=== PATIENT | female | born 1945 | race Caucasian/White ===

== ENCOUNTER 2025-05-05 16:48 | Emergency (ER) | payer MEDICARE, BC, SELFPAY ==
[2025-05-05 16:51] VITALS: BP 148/82; PULSE 75; RESP 20; TEMP 36.9; O2SAT 94
--- NOTE | 2025-05-05 17:00 | DI.RAD_ITS ---
Exam(s) XR SHOULDER LT COMPLETE 2+V EXAM: XR SHOULDER LT COMPLETE 2+V CLINICAL HISTORY: fall; pain to L shoulder. TECHNIQUE: 2D digital imaging was performed. COMPARISON: No exams were available for comparison FINDINGS: Four views There is acute comminuted and impacted fracture of the humeral head and. Greater tuberosity is also fractured. The subacromial space is not diminished. There is no dislocation of the glenohumeral and AC joints. Ipsilateral clavicle is intact. No significant osseous lesions evident. IMPRESSION: Mildly impacted and comminuted fracture of humeral head and neck. The greater tuberosity is also fractured. DATA REPOSITORY: RADIATION DOSE DELIVERED:
--- NOTE | 2025-05-05 17:22 | W.ED.GENAD ---
Discharge Plan Disposition Patient Disposition: Home Condition: Stable Discharge Details Clinical Impression: Fracture of left shoulder Primary Care Provider: Unknown,Unknown ED Provider: Lizandro Bagley Home Meds and New Rx's Prescriptions: Continued metoprolol succinate 25 mg capsule,lindseyinkle,ER 24hr 12.5 mg PO DAILY levothyroxine [Euthyrox] 125 mcg tablet 125 mcg PO DAILY estradiol [Yuvafem] 10 mcg tablet 10 mcg vaginal .Weekly alendronate 10 mg tablet 10 mg PO DAILY Discharge Instructions Instructions: Upper Arm Fracture ED Additional Instructions: You were seen in the emergency department for your fall with a left proximal humerus fracture, this may or may not need surgery but orthopedics recommended just a sling for now. You will need to follow-up with an orthopedic practice upon return to [place]. Remain in the sling, sleep in a recliner chair, rest and ice the area, ice to complete numbness and then not rewarm. For the first couple days you can take 2 naproxen twice per day but then go down to 1 naproxen twice per day. You can take 1000 mg of acetaminophen/Tylenol 3 times per day. We have provided you with 1 dose of oxycodone for breakthrough pain tonight as well as Zofran to help with nausea of opiates Discharge Data Discharge Date/Time-TO BE ENTERED AT DEPARTURE: 05/05/25 18:38 HPI General Date/Time Provider Initiated Documentation: 05/05/25 17:01. HPI Narrative: 79 year-old female presents to ED today by POV/ambulating with her daughter with a chief complaint of trip & fall earlier today around 1515 with L shoulder pain. Quality described as sharp severe L shoulder pain- R hand dominant, no radiation to numbness in L hand, clavicle tenderness, headstrike, neck pain, LOC, shortness of breath. Severity is described as severe. Palliating factors include nothing specific attempted. Provoking factors include movement. Patient not anticoagulated. Related Data Home Medications ?Medication ?Instructions ?Recorded ?Confirmed alendronate 10 mg tablet 10 mg PO DAILY 05/05/25 05/05/25 estradiol 10 mcg vaginal tablet 10 mcg vaginal .Weekly 05/05/25 05/05/25 (Yuvafem) levothyroxine 125 mcg tablet 125 mcg PO DAILY 05/05/25 05/05/25 (Euthyrox) metoprolol succinate 25 mg capsule 12.5 mg PO DAILY 05/05/25 05/05/25 sprinkle, ext. release 24 hr Allergies Allergy/AdvReac Type Severity Reaction Status Date / Time Penicillins Allergy Severe Anaphylaxis Verified 05/06/25 15:40 prednisone Allergy Intermediate Anaphylaxis Verified 05/06/25 15:40 General Stated Complaint: Orthopedic MELODIE: 4 Review of Systems All systems reviewed & are unremarkable except as noted in HPI and below Exam Narrative Exam Narrative: GENERAL APPEARANCE: Well-nourished, non-toxic, awake and alert, atraumatic, no acute distress. SKIN: Warm, pink, dry, intact, without rashes/lesions/ulcerations. HEAD: Normocephalic, atraumatic, normal hair distribution for gender/age. EYES: Normal conjunctiva, no exudates on lids/lashes. ENT: Nares patent, no circumoral cyanosis, no facial swelling NECK: Supple, trachea midline, painless cervical ROM, no midline cervical vertebral tenderness/crepitus/stepoffs. LUNGS/CHEST: Non-labored respirations, normal A/P diameter, symmetrical expansion, no chest wall deformity HEART (CV/PV): Regular rate and rhythm without murmur, no peripheral edema, no JVD. ABDOMEN: Soft, non-distended, no guarding. MSK: Normal ROM, no swelling/deformity to R UE or bilateral LEs, moving all extremities without weakness, no cyanosis, spine midline without tenderness, normal curvature. L SHOULDER: L shoulder proximal humerus tender to palpation with crepitus, no squared off appearance, sensation intact L hand, L radial pulse 2+, ROM limited to pain NEURO: Mental Status AAOx4 - alert to person, place, time, events No facial droop, no forehead involvement. Motor: No focal weakness - save for L UE ROM deficit to pain Sensory: sensation intact to light touch globally. Gait normal: patient ambulated without ataxia into ED room. PSYCH: euthymic, cooperative, pleasant, appropriate speech Course Vital Signs Vital signs: Vital Signs Temperature 36.9 C 05/05/25 16:51 Pulse 75 05/05/25 16:51 Respiratory Rate 20 05/05/25 16:51 Blood Pressure 148/82 H 05/05/25 16:51 Pulse Oximetry 94 05/05/25 16:51 Temperature 36.9 C 05/05/25 16:51 Pulse 75 05/05/25 16:51 Respiratory Rate 20 05/05/25 16:51 Blood Pressure 148/82 H 05/05/25 16:51 Blood Pressure Position Sitting 05/05/25 16:51 Pulse Oximetry 94 05/05/25 16:51 Oxygen Delivery Method Room Air 05/05/25 16:51 Oxygen Flow Rate 0 05/05/25 16:51 Pain Level 6 05/05/25 17:15 Medical Decision Making This dictation utilizes [id number] dictation software and may contain unedited grammatical errors. 79 year-old female presents to ED today by POV/ambulating with her daughter with a chief complaint of trip & fall earlier today around 1514 with L shoulder pain. Quality described as sharp severe L shoulder pain- R hand dominant, no radiation to numbness in L hand, clavicle tenderness, headstrike, neck pain, LOC, shortness of breath. Severity is described as severe. Palliating factors include nothing specific attempted. Provoking factors include movement. Patients' medical history: osteoporosis. Family and social history: noncontributory. Pertinent exam findings / vital signs include L shoulder proximal humerus tender to palpation with crepitus, no squared off appearance, sensation intact L hand, L radial pulse 2+, ROM limited to pain, no cervical tenderness, no signs of head trauma. Differential / pathologies of concern include fracture, dislocation, sprain/strain. Diagnostic studies of: -XR L Shoulder - shows comminuted fx of humeral neck. Interventions of: -sling. ED Course/Assessment/Plan: 79-year-old female presents after trip and fall today around 1514, left shoulder pain without overt deformity, has bruising and tenderness and crepitus to left shoulder, patient is right-hand dominant, has a complex fracture but is well aligned, discussed with Dr. Up on-call recommends sling at this time, he will gladly follow in the office but the patient is from [place] and will follow-up with orthopedics of her choice when she returns home, was provided discs of her x-ray and recommended return to any emergent facility for signs of neurovascular compromise. Findings not consistent with need for closed reduction, neurovascular compromise. Disposition of Fracture of Left Shoulder. Patient verbalized understanding of the plan and return to ED criteria and engaged in shared decision making. Medical Records Medical records reviewed: Yes I reviewed the patient's medical records. Imaging Data Radiologic Study: Attestation: I personally reviewed and interpreted this imaging study as follows: Imaging: X-Ray Radiologist's impression: EXAM: XR SHOULDER LT COMPLETE 2+V CLINICAL HISTORY: fall; pain to L shoulder. TECHNIQUE: 2D digital imaging was performed. COMPARISON: No exams were available for comparison FINDINGS: Four views There is acute comminuted and impacted fracture of the humeral head and. Greater tuberosity is also fractured. The subacromial space is not diminished. There is no dislocation of the glenohumeral and AC joints. Ipsilateral clavicle is intact. No significant osseous lesions evident. IMPRESSION: Mildly impacted and comminuted fracture of humeral head and neck. The greater tuberosity is also fractured. PFSH All Active Problems (System 05/06/25 @ 15:40 by Sushma Benjamin) Fracture of left shoulder (Acute) Social History (System 05/06/25 @ 15:40 by Sushma Benjamin) Smoking risk assessment performed?: No PAWSS Have you Been Recently Intoxicated or Drunk Within the Last 30 days?: No Have you Ever Experienced Previous Episodes of Alcohol Withdrawal?: No Have you ever Experienced Withdrawal Seizures?: No Have you ever Experienced Delirium Tremens(DT)s?: No Have you ever undergone Alcohol Rehabilitation Treatment (i.e, inpt ot outpatient treatment programs)?: No Have you ever Experienced Blackouts?: No Have you ever Combined Alcohol with other Downers within the last 90 days?: No Have you ever Combined Alcohol with any other Substance of Abuse during the last 90 days?: No Positive Blood Alcohol level on Presentation? [PCS.BAL]: No Evidence of Increased Autonomic Activity (i.e. HR>120, tremor, sweating, agitation, nausea)?: No Result: 0
[2025-05-05] MEDS: oxyCODONE 5 MG TAB PO (18:15)
[2025-05-05] MEDS: Acetaminophen 500 MG TAB 1000 MG PO (18:15)
[2025-05-05] MEDS: Ondansetron O.D.T. 4 MG TABEF PO (18:15)
[2025-05-05 18:36] VITALS: BP 134/68; PULSE 70; RESP 16; O2SAT 98
== END 2025-05-05 18:38 | disposition home or self-care (01) ==
PROVIDERS: Emergency Provider Physician Assistant
DX: S42.92XA Fracture of left shoulder girdle, part unspecified, initial encounter for closed fracture (principal); W01.198A Fall on same level from slipping, tripping and stumbling with subsequent striking against other object, initial encounter
CPT/HCPCS: 99283 ×2; 73030